=== PATIENT | male | born 1935 | race Caucasian/White ===

== ENCOUNTER 2017-10-13 18:14 | Inpatient (IN) | payer OTHER, BC ==
--- NOTE | 2017-10-13 18:46 | PDOC ---
Rapid Medical Evaluation Time Seen by Provider: 10/13/17 18:43 Medical Evaluation: Allergies Allergy/AdvReac Type Severity Reaction Status Date / Time No Known Allergies Allergy Verified 08/01/17 15:05 10/13/17 18:43 I have performed a brief in-person evaluation of this patient. The patient presents with a chief complaint of: admission for iv antibiotics for infected ankle wounds. Denies fever or chills Pertinent physical findings: NAD even and unlabored breathing slow cautious gait I have ordered the following: iv access, labs The patient will proceed to the ED for further evaluation.
--- NOTE | 2017-10-13 19:39 | PDOC ---
History of Present Illness - General Chief Complaint: Wound Stated Complaint: PCP ADMIT Time Seen by Provider: 10/13/17 18:43 History Source: Patient Exam Limitations: No Limitations - History of Present Illness Initial Comments: 10/13/17 19:41 Best Contact: PCP:[phone] Pmhx: Renal insufficiency, glaucoma, chronic sinusitis, NIDDM, cataracts Pshx: Bilateral knee replacement, left femur fracture/violetta, tonsillitis Allergies: NO KNOWN DRUG ALLERGIES FH:0 Social Hx: Cigarettes/ 0 Alcohol/ 0 Drugs/0 LMP:N/A 82-year-old male presents to the emergency department for cellulitis to the [facility]. Patient states he had his leg culture 1-1/2 weeks ago. He was sent to the wound care center today where he spoke to infectious disease/Dr. Maddox and was sent to the emergency department for admission to Dr. Francis. Patient denies fever, chills, nausea/vomiting, neck stiffness/pain, back pains, chest pain, shortness of breath, abdominal pains, flank pains, urinary symptoms , extremity numbness or tingling sensation. Patient states he's been dealing with chronic bilateral lower extremity for the past month. Past History - Past Medical History Allergies/Adverse Reactions: Allergies Allergy/AdvReac Type Severity Reaction Status Date / Time No Known Allergies Allergy Verified 10/13/17 18:45 Home Medications: Ambulatory Orders ASA - 81 mg PO DAILY 08/01/17 Lasix 20 mg PO DAILY 08/01/17 Glipizide 2.5 mg PO DAILY 08/08/17 Alphagan 0.15% - IO BID MDD right only 10/14/17 Bimatoprost [Lumigan] OU DAILY 10/14/17 Flunisolide DAILY 10/14/17 COPD: No DVT: No Diabetes: Yes (Type 2 Borderline) HTN: Yes Other medical history: GLAUCOMA TO RIGHT EYE. - Surgical History Orthopedic Surgery: Yes (Bilat TKR.) - Immunization History Immunization Up to Date: Yes - Suicide/Smoking/Psychosocial Hx Smoking History: Unknown if ever smoked Have you smoked in the past 12 months: No Information on smoking cessation initiated: No Hx Alcohol Use: No Drug/Substance Use Hx: No Review of Systems - Review of Systems Able to Perform ROS?: Yes Comments:: 10/13/17 20:00 CONSTITUTIONAL: Absent: fever, chills, diaphoresis, generalized weakness, malaise, loss of appetite HEENT: Absent: rhinorrhea, nasal congestion, throat pain, throat swelling, difficulty swallowing, mouth swelling, ear pain, eye pain, visual Changes CARDIOVASCULAR: Absent: chest pain, loss of consciousness, palpitations, irregular heart rate, peripheral edema RESPIRATORY: Absent: cough, shortness of breath, dyspnea with exertion, orthopnea, wheezing, stridor, hemoptysis GASTROINTESTINAL: Absent: abdominal pain, abdominal distension, nausea, vomiting, diarrhea, constipation, melena, hematochezia GENITOURINARY: Absent: dysuria, frequency, urgency, hesitancy, hematuria, flank pain, genital pain MUSCULOSKELETAL: Absent: myalgia, arthralgia, joint swelling SKIN: L lat ankle: +erythema/swelling/greenish drainage Absent: rash, itching, pallor HEMATOLOGIC/IMMUNOLOGIC: Absent: easy bleeding, easy bruising, lymphadenopathy, frequent infections Is the patient limited Cymro proficient: No *Physical Exam - Vital Signs Last Vital Signs Temp Pulse Resp BP Pulse Ox 98.2 F 66 16 156/63 98 10/13/17 18:45 10/13/17 18:45 10/13/17 18:45 10/13/17 18:45 10/13/17 18:45 - Physical Exam Comments: 10/13/17 20:00 GENERAL: Well developed, well nourished. Awake and alert. No acute distress. HEENT: Normocephalic, atraumatic. PERRLA, EOMI. No conjunctival pallor. Sclera are non- icteric. Moist mucous membranes. Oropharynx is clear. NECK: Supple. Full ROM. No JVD. Carotid pulses 2+ and symmetric, without bruits. No thyromegaly. No lymphadenopathy. CARDIOVASCULAR: Regular rate and rhythm. No murmurs, rubs, or gallops. Distal pulses are 2+ and symmetric. PULMONARY: No evidence of respiratory distress. Lungs clear to auscultation bilaterally. No wheezing, rales or rhonchi. ABDOMINAL: Soft. Non-tender. Non-distended. No rebound or guarding. No organomegaly. Normoactive bowel sounds. MUSCULOSKELETAL Normal range of motion at all joints. No bony deformities or tenderness. No CVA tenderness. EXTREMITIES: No cyanosis. No clubbing. No edema. No calf tenderness. SKIN: Left lat ankle: +greenish drainage/ erythema/+swelling w/o lymphangitis Warm and dry. Normal capillary refill. No rashes. No jaundice. NEUROLOGICAL: Alert, awake, appropriate. Cranial nerves 2-12 intact. No deficits to light touch and temperature in face, upper extremities and lower extremities. No motor deficits in the in face, upper extremities and lower extremities. Normoreflexic in the upper and lower extremities. Normal speech. Toes are down- going bilaterally. Gait is normal without ataxia. ED Treatment Course - LABORATORY CBC & Chemistry Diagram: 10/13/17 21:00 10/13/17 21:00 - RADIOLOGY Radiograph Interpretation: 10/13/17 20:01 CXR: 2v *DC/Admit/Observation/Transfer Diagnosis at time of Disposition: Cellulitis of leg Qualifiers: Laterality: left Qualified Code(s): L03.116 - Cellulitis of left lower limb - Discharge Dispostion Condition at time of disposition: Stable Decision to Admit order: Yes - Referrals - Patient Instructions - Post Discharge Activity Progress Note - Progress Note Progress Note: 193rhs: Called Dr. Maddox and Penny 2010hrs: As per DR. Francis/will admit 2058hrs: SPoke to Dr. Maddox/ Jessica if kidney function is normal. Otherwise, call him back. Triple bacteria: Pseudomonas, enterococcus and possibly Escherichia coli culture resulted in ID office as per Dr. Maddox 8hrs: Called Dr. Maddox 0121hrs: Dr. Maddox called back states to give the kristisyn after revealing the BUN/ CR, Maryam NOBLE from [facility] notified
--- NOTE | 2017-10-13 20:13 | PDOC ---
*Physical Exam - Vital Signs Last Vital Signs Temp Pulse Resp BP Pulse Ox 98.2 F 66 16 156/63 98 10/13/17 18:45 10/13/17 18:45 10/13/17 18:45 10/13/17 18:45 10/13/17 18:45 Medical Decision Making - Medical Decision Making 10/13/17 20:13 agree with care from REZA Shaver *DC/Admit/Observation/Transfer Diagnosis at time of Disposition: Cellulitis of leg Qualifiers: Laterality: left Qualified Code(s): L03.116 - Cellulitis of left lower limb - Discharge Dispostion Condition at time of disposition: Stable - Referrals Referrals: Tyson Elizabeth MD [Primary Care Provider] - - Patient Instructions - Post Discharge Activity
[2017-10-13 21:14] LABS: BASO % 0.6 % (0-2.0); EOS % 3.4 % (0-4.5); HEMATOCRIT 33.5 % (35.4-49); HEMOGLOBIN 11.1 GM/dL (11.7-16.9); LYMPH % 25.4 % (8-40); MCH 30.3 pg (25.7-33.7); MCHC 33.1 g/dl (32.0-35.9); MEAN CELL VOLUME 91.4 fl (80-96); MEAN PLT VOLUME 7.3 fl (7.5-11.1); MONO % 7.7 % (3.8-10.2); NEUT % 62.9 % (42.8-82.8); PLATELET COUNT 204 K/MM3 (134-434); RBC 3.67 M/mm3 (4.00-5.60); RDW 14.6 % (11.9-15.9); WHITE BLOOD COUNT 6.6 K/mm3 (4.0-10.0)
[2017-10-13 21:28] LABS: INR 1.09 (0.82-1.09); PROTHROMBIN TIME (PATIENT) 12.3 SEC (9.7-13.0)
[2017-10-13 21:31] LABS: ACTIVATED PTT 25.3 SECONDS (25.2-36.5)
[2017-10-13 21:36] LABS: ALBUMIN 3.8 g/dl (3.4-5.0); ALK PHOS 89 U/L (45-117); ANION GAP 7 (8-16); BILIRUBIN,TOTAL 0.4 mg/dL (0.2-1.0); BLOOD UREA NITROGEN 28 mg/dL (7-18); CALCIUM 9.2 mg/dL (8.5-10.1); CHLORIDE 106 mmol/L (98-107); CO2 29 mmol/L (21-32); GLUCOSE,RANDOM 90 mg/dL (74-106); POTASSIUM 4.2 mmol/L (3.5-5.1); SGOT/AST 24 U/L (15-37); SGPT/ALT 29 U/L (12-78); SODIUM 142 mmol/L (136-145); TOT PROT 6.9 g/dl (6.4-8.2)
[2017-10-14 00:14] VITALS: BMI 34.0
[2017-10-14] MEDS ORDERED: PIPERACILLIN/TAZOB 3.375 GM 3.375 GM in DEXTROSE 5%-WATER - 50 ML IVPB ONE (01:20)
[2017-10-14] MEDS ORDERED: PIPERACILLIN/TAZOBACTAM 3.375 GM VIAL IVPB ONE ×3 (02:23→17:52)
[2017-10-14] MEDS ORDERED: DEXTROSE 5%-WATER - 50 ML IVPB ONE ×3 (02:23→17:52)
[2017-10-14] MEDS: glipiZIDE 5 MG TABLET (FP) PO SCH (10:02)
[2017-10-14] MEDS: ASPIRIN 81 MG CHEWABLE TABLETS PO SCH (10:02)
[2017-10-14] MEDS: FUROSEMIDE 20 MG TABLET (FP) PO SCH (10:03)
[2017-10-14] MEDS: BRIMONIDINE TARTRATE 0.15% OPHTHALMIC 5 ML BOTTLE OD SCH ×2 (10:03→22:12)
--- NOTE | 2017-10-14 13:21 | CON.ID ---
Consult Consult Specialty:: infectious diseases Reason for Consultation:: non healing wound of the left leg with wound infection - History of Present Illness Chief Complaint: non healing wound History of Present Illness: 82-year-old male admitted for cellulitis to the [facility]. patient has ahd this non healing wound for more than couple of months and patient has taken multiple different rounds of abx and the wound has not healed patient was following with the wound care center and wound cx were done which showed multiple organism he denies fever but continues to have discharge and pain at the wound site which hampers his day to day activity also patient has been having discharge from the wound - History Source History Provided By: Patient, Medical Record Limitations to Obtaining History: No Limitations - Alcohol/Substance Use Hx Alcohol Use: No - Smoking History Smoking history: Unknown if ever smoked Have you smoked in the past 12 months: No Home Medications - Allergies Allergies/Adverse Reactions: Allergies Allergy/AdvReac Type Severity Reaction Status Date / Time No Known Allergies Allergy Verified 10/13/17 18:45 - Home Medications Home Medications: Ambulatory Orders ASA - 81 mg PO DAILY 08/01/17 Lasix 20 mg PO DAILY 08/01/17 Glipizide 2.5 mg PO DAILY 08/08/17 Alphagan 0.15% - IO BID MDD right only 10/14/17 Bimatoprost [Lumigan] OU DAILY 10/14/17 Flunisolide DAILY 10/14/17 Review of Systems - Review of Systems Constitutional: reports: No Symptoms Eyes: reports: No Symptoms HENT: reports: No Symptoms Neck: reports: No Symptoms Cardiovascular: reports: No Symptoms Respiratory: reports: No Symptoms Gastrointestinal: reports: No Symptoms Genitourinary: reports: No Symptoms Musculoskeletal: reports: No Symptoms Integumentary: reports: Erythema, Wound Neurological: reports: No Symptoms Hematology/Lymphatic: reports: No Symptoms Psychiatric: reports: No Symptoms Physical Exam Vital Signs: Vital Signs Temperature 98.3 F 10/14/17 10:00 Pulse Rate 59 L 10/14/17 10:00 Respiratory Rate 18 10/14/17 10:00 Blood Pressure 150/55 10/14/17 10:00 O2 Sat by Pulse Oximetry (%) 96 10/14/17 00:55 Constitutional: Yes: No Distress, Calm Cardiovascular: Yes: Regular Rate and Rhythm Respiratory: Yes: Regular, CTA Bilaterally Gastrointestinal: Yes: Normal Bowel Sounds, Soft Musculoskeletal: Yes: Other Extremities: Yes: Erythema (improving), Other Integumentary: Yes: Erythema Wound/Incision: Yes: Dressing Dry and Intact, Dressing Removed Neurological: Yes: Alert, Oriented Psychiatric: Yes: Alert, Oriented Labs: CBC, BMP 10/13/17 21:00 10/13/17 21:00 Imaging - Results Chest X-ray: Report Reviewed, Image Reviewed Assessment/Plan Problem List - Problems (1) Cellulitis of leg Code(s): L03.119 - CELLULITIS OF UNSPECIFIED PART OF LIMB Qualifiers: Laterality: left Qualified Code(s): L03.116 - Cellulitis of left lower limb (2) Diabetes Code(s): E11.9 - TYPE 2 DIABETES MELLITUS WITHOUT COMPLICATIONS 3) wound infection plan all the cx reports noted will start patient on abx relating to cx rest continue current mgmt wound care rest as per the team
[2017-10-14] MEDS: PIPERACILLIN/TAZOB 3.375 GM 3.375 GM in DEXTROSE 5%-WATER - 50 ML IVPB SCH ×2 (15:04→18:03)
--- NOTE | 2017-10-14 16:30 | HP ---
Admitting History and Physical - Primary Care Physician PCP: Belkys Francis - Admission History of Present Illness: 82-year-old male presents to the emergency department for cellulitis to the [facility]. Patient states he had his leg culture 1-1/2 weeks ago. He was sent to the wound care center today where he spoke to infectious disease/Dr. Maddox and was sent to the emergency department for admission to Dr. Francis. Patient denies fever, chills, nausea/vomiting, neck stiffness/pain, back pains, chest pain, shortness of breath, abdominal pains, flank pains. - Past Medical History Endocrine: Yes: Diabetes Mellitus - Smoking History Smoking history: Unknown if ever smoked Have you smoked in the past 12 months: No - Alcohol/Substance Use Hx Alcohol Use: No Home Medications - Allergies Allergies/Adverse Reactions: Allergies Allergy/AdvReac Type Severity Reaction Status Date / Time No Known Allergies Allergy Verified 10/13/17 18:45 - Home Medications Home Medications: Ambulatory Orders ASA - 81 mg PO DAILY 08/01/17 Lasix 20 mg PO DAILY 08/01/17 Glipizide 2.5 mg PO DAILY 08/08/17 Alphagan 0.15% - IO BID MDD right only 10/14/17 Bimatoprost [Lumigan] OU DAILY 10/14/17 Flunisolide DAILY 10/14/17 Physical Examination Vital Signs: Vital Signs Temperature 97.8 F 10/14/17 14:47 Pulse Rate 58 L 10/14/17 14:47 Respiratory Rate 20 10/14/17 14:47 Blood Pressure 130/53 10/14/17 14:47 O2 Sat by Pulse Oximetry (%) 96 10/14/17 00:55 Constitutional: Yes: No Distress HENT: Yes: Atraumatic Neck: Yes: Supple Cardiovascular: Yes: Regular Rate and Rhythm Respiratory: Yes: CTA Bilaterally Gastrointestinal: Yes: Normal Bowel Sounds Extremities: Yes: Other (llex cellulitis) Neurological: Yes: Alert, Oriented Labs: CBC, BMP 10/13/17 21:00 10/13/17 21:00 Problem List - Problems (1) Cellulitis of leg Assessment/Plan: iv abx id on board Code(s): L03.119 - CELLULITIS OF UNSPECIFIED PART OF LIMB Qualifiers: Laterality: left Qualified Code(s): L03.116 - Cellulitis of left lower limb (2) Diabetes Assessment/Plan: on po med bgms Code(s): E11.9 - TYPE 2 DIABETES MELLITUS WITHOUT COMPLICATIONS Assessment/Plan Laboratory Tests 10/13/17 10/13/17 10/13/17 21:00 21:00 21:00 WBC 6.6 RBC 3.67 L Hgb 11.1 L Hct 33.5 L MCV 91.4 MCH 30.3 MCHC 33.1 RDW 14.6 Plt Count 204 MPV 7.3 L Absolute Neuts (auto) 4.2 Neutrophils % 62.9 Lymphocytes % 25.4 Monocytes % 7.7 Eosinophils % 3.4 Basophils % 0.6 Nucleated RBC % 0 PT with INR 12.30 INR 1.09 PTT (Actin FS) 25.3 L Sodium 142 Potassium 4.2 Chloride 106 Carbon Dioxide 29 Anion Gap 7 L BUN 28 H Creatinine 1.0 Creat Clearance w eGFR > 60 POC Glucometer Random Glucose 90 Calcium 9.2 Total Bilirubin 0.4 AST 24 ALT 29 Alkaline Phosphatase 89 Total Protein 6.9 Albumin 3.8 10/14/17 00:22 WBC RBC Hgb Hct MCV MCH MCHC RDW Plt Count MPV Absolute Neuts (auto) Neutrophils % Lymphocytes % Monocytes % Eosinophils % Basophils % Nucleated RBC % PT with INR INR PTT (Actin FS) Sodium Potassium Chloride Carbon Dioxide Anion Gap BUN Creatinine Creat Clearance w eGFR POC Glucometer 83 Random Glucose Calcium Total Bilirubin AST ALT Alkaline Phosphatase Total Protein Albumin Active Medications Generic Name Dose Route Start Last Admin Trade Name Freq PRN Reason Stop Dose Admin Aspirin 81 mg 10/14/17 10:00 10/14/17 10:02 Asa - PO 81 mg DAILY SLY Administration Brimonidine Tartrate 1 drop 10/14/17 10:00 10/14/17 10:03 Alphagan 0.15% - OD 1 drop BID SLY Administration Furosemide 20 mg 10/14/17 10:00 10/14/17 10:03 Lasix - PO 20 mg DAILY SLY Administration Glipizide 2.5 mg 10/14/17 09:30 10/14/17 10:02 Glucotrol - PO 2.5 mg DAILY@0700 SLY Administration Piperacillin Sod/Tazobactam 50 mls @ 100 mls/hr 10/14/17 14:45 10/14/17 15:04 Sod 3.375 gm/ Dextrose IVPB 100 mls/hr Q8H-IV SLY Administration Protocol Latanoprost 1 drop 10/14/17 22:00 Xalatan 0.005% Eye Drops - OU HS SLY
[2017-10-14] MEDS: LATANOPROST 0.005% OPHTH SOLN 2.5ML BOTTLE OU SCH (22:13)
[2017-10-15] MEDS ORDERED: DEXTROSE 5%-WATER - 50 ML IVPB ONE ×3 (00:54→17:02)
[2017-10-15] MEDS ORDERED: PIPERACILLIN/TAZOBACTAM 3.375 GM VIAL IVPB ONE ×3 (00:54→17:02)
[2017-10-15] MEDS: PIPERACILLIN/TAZOB 3.375 GM 3.375 GM in DEXTROSE 5%-WATER - 50 ML IVPB SCH ×3 (01:29→17:19)
[2017-10-15] MEDS: glipiZIDE 5 MG TABLET (FP) PO SCH (06:26)
[2017-10-15] MEDS ORDERED: PT OWN MED DRAWER 7, Y5N ONE ×2 (06:56→22:24)
[2017-10-15 07:40] LABS: ALBUMIN 3.2 g/dl (3.4-5.0); ANION GAP 8 (8-16); BILIRUBIN,TOTAL 0.5 mg/dL (0.2-1.0); BLOOD UREA NITROGEN 24 mg/dL (7-18); CALCIUM 8.8 mg/dL (8.5-10.1); CHLORIDE 105 mmol/L (98-107); CO2 29 mmol/L (21-32); GLUCOSE,RANDOM 89 mg/dL (74-106); SGPT/ALT 27 U/L (12-78); SODIUM 142 mmol/L (136-145); TOT PROT 6.4 g/dl (6.4-8.2)
[2017-10-15 07:41] LABS: ALK PHOS 79 U/L (45-117)
[2017-10-15 07:46] LABS: POTASSIUM 4.6 mmol/L (3.5-5.1); SGOT/AST 34 U/L (15-37)
[2017-10-15 08:25] LABS: BASO % 0.2 % (0-2.0); EOS % 6.2 % (0-4.5); HEMATOCRIT 34.7 % (35.4-49); HEMOGLOBIN 11.7 GM/dL (11.7-16.9); LYMPH % 23.6 % (8-40); MCH 30.5 pg (25.7-33.7); MCHC 33.6 g/dl (32.0-35.9); MEAN CELL VOLUME 90.9 fl (80-96); MONO % 8.6 % (3.8-10.2); NEUT % 61.4 % (42.8-82.8); PLATELET COUNT 175 K/MM3 (134-434); RBC 3.82 M/mm3 (4.00-5.60); RDW 14.3 % (11.9-15.9); WHITE BLOOD COUNT 5.4 K/mm3 (4.0-10.0)
[2017-10-15] MEDS: ASPIRIN 81 MG CHEWABLE TABLETS PO SCH (09:34)
[2017-10-15] MEDS: BRIMONIDINE TARTRATE 0.15% OPHTHALMIC 5 ML BOTTLE OD SCH ×2 (09:34→22:02)
[2017-10-15] MEDS: FUROSEMIDE 20 MG TABLET (FP) PO SCH (09:34)
--- NOTE | 2017-10-15 11:55 | PN ---
Progress Note, Physician History of Present Illness: patient stable no new issues dressing done cx known - Current Medication List Current Medications: Active Medications Aspirin (Asa -) 81 mg PO DAILY [facility] Last Admin: 10/15/17 09:34 Dose: 81 mg Brimonidine Tartrate (Alphagan 0.15% -) 1 drop OD BID [facility] Last Admin: 10/15/17 09:34 Dose: 1 drop Furosemide (Lasix -) 20 mg PO DAILY [facility] Last Admin: 10/15/17 09:34 Dose: 20 mg Glipizide (Glucotrol -) 2.5 mg PO DAILY@0700 [facility] Last Admin: 10/15/17 06:26 Dose: 2.5 mg Piperacillin Sod/Tazobactam (Sod 3.375 gm/ Dextrose) 50 mls @ 100 mls/hr IVPB Q8H-IV SLY; Protocol Last Admin: 10/15/17 09:33 Dose: 100 mls/hr Latanoprost (Xalatan 0.005% Eye Drops -) 1 drop OU HS [facility] Last Admin: 10/14/17 22:13 Dose: 1 drop - Objective Vital Signs: Vital Signs Temperature 98.1 F 10/15/17 06:00 Pulse Rate 57 L 10/15/17 06:00 Respiratory Rate 20 10/15/17 06:00 Blood Pressure 143/78 10/15/17 06:00 O2 Sat by Pulse Oximetry (%) 96 10/14/17 20:42 Constitutional: Yes: No Distress, Calm Cardiovascular: Yes: Regular Rate and Rhythm Respiratory: Yes: Regular, CTA Bilaterally Gastrointestinal: Yes: Normal Bowel Sounds, Soft Musculoskeletal: Yes: WNL Extremities: Yes: Other Wound/Incision: Yes: Dressing Dry and Intact Neurological: Yes: Alert, Oriented Labs: CBC, BMP 10/15/17 06:00 10/15/17 06:00 INR, PTT INR 1.09 (0.82-1.09) 10/13/17 21:00 Assessment/Plan Problem List - Problems (1) Cellulitis of leg Code(s): L03.119 - CELLULITIS OF UNSPECIFIED PART OF LIMB Qualifiers: Laterality: left Qualified Code(s): L03.116 - Cellulitis of left lower limb (2) Diabetes Code(s): E11.9 - TYPE 2 DIABETES MELLITUS WITHOUT COMPLICATIONS 3) wound infection plan continue abx wound care rest as per the team will d/w wound care
--- NOTE | 2017-10-15 16:46 | PN ---
Progress Note, Physician - Current Medication List Current Medications: Active Medications Aspirin (Asa -) 81 mg PO DAILY [facility] Last Admin: 10/15/17 09:34 Dose: 81 mg Brimonidine Tartrate (Alphagan 0.15% -) 1 drop OD BID [facility] Last Admin: 10/15/17 09:34 Dose: 1 drop Furosemide (Lasix -) 20 mg PO DAILY [facility] Last Admin: 10/15/17 09:34 Dose: 20 mg Glipizide (Glucotrol -) 2.5 mg PO DAILY@0700 [facility] Last Admin: 10/15/17 06:26 Dose: 2.5 mg Piperacillin Sod/Tazobactam (Sod 3.375 gm/ Dextrose) 50 mls @ 100 mls/hr IVPB Q8H-IV SLY; Protocol Last Admin: 10/15/17 09:33 Dose: 100 mls/hr Latanoprost (Xalatan 0.005% Eye Drops -) 1 drop OU HS [facility] Last Admin: 10/14/17 22:13 Dose: 1 drop - Objective Vital Signs: Vital Signs Temperature 97.5 F L 10/15/17 14:04 Pulse Rate 65 10/15/17 14:04 Respiratory Rate 20 10/15/17 14:04 Blood Pressure 131/55 10/15/17 14:04 O2 Sat by Pulse Oximetry (%) 97 10/15/17 09:00 Constitutional: Yes: No Distress HENT: Yes: Atraumatic Neck: Yes: Supple Cardiovascular: Yes: Regular Rate and Rhythm Respiratory: Yes: CTA Bilaterally Gastrointestinal: Yes: Normal Bowel Sounds Extremities: Yes: Other (llex cellulitis) Neurological: Yes: Alert, Oriented Labs: CBC, BMP 10/15/17 06:00 10/15/17 06:00 INR, PTT INR 1.09 (0.82-1.09) 10/13/17 21:00 Problem List - Problems (1) Cellulitis of leg Assessment/Plan: iv abx id on board Code(s): L03.119 - CELLULITIS OF UNSPECIFIED PART OF LIMB Qualifiers: Laterality: left Qualified Code(s): L03.116 - Cellulitis of left lower limb (2) Diabetes Assessment/Plan: on po med bgms Code(s): E11.9 - TYPE 2 DIABETES MELLITUS WITHOUT COMPLICATIONS
[2017-10-15] MEDS: LATANOPROST 0.005% OPHTH SOLN 2.5ML BOTTLE OU SCH (22:02)
[2017-10-16] MEDS ORDERED: PIPERACILLIN/TAZOBACTAM 3.375 GM VIAL IVPB ONE ×3 (01:19→17:30)
[2017-10-16] MEDS ORDERED: DEXTROSE 5%-WATER - 50 ML IVPB ONE ×3 (01:19→17:31)
[2017-10-16] MEDS: PIPERACILLIN/TAZOB 3.375 GM 3.375 GM in DEXTROSE 5%-WATER - 50 ML IVPB SCH ×4 (01:25→17:42)
[2017-10-16] MEDS: glipiZIDE 5 MG TABLET (FP) PO SCH (06:18)
[2017-10-16] MEDS: ASPIRIN 81 MG CHEWABLE TABLETS PO SCH (09:15)
[2017-10-16] MEDS: BRIMONIDINE TARTRATE 0.15% OPHTHALMIC 5 ML BOTTLE OD SCH ×2 (09:15→22:06)
[2017-10-16] MEDS: FUROSEMIDE 20 MG TABLET (FP) PO SCH (09:15)
--- NOTE | 2017-10-16 14:07 | PN ---
Progress Note (short form) - Note Progress Note: [facility] Well known from [facility]. Here for cellulitis of LLE. Cont alginate and ion for compression. IV antibiotics. Leg elevation. Kenrick gilmore DO
--- NOTE | 2017-10-16 14:50 | PN ---
Progress Note, Physician History of Present Illness: doing well wound healing well no complaints - Current Medication List Current Medications: Active Medications Aspirin (Asa -) 81 mg PO DAILY [facility] Last Admin: 10/16/17 09:15 Dose: 81 mg Brimonidine Tartrate (Alphagan 0.15% -) 1 drop OD BID [facility] Last Admin: 10/16/17 09:15 Dose: 1 drop Furosemide (Lasix -) 20 mg PO DAILY [facility] Last Admin: 10/16/17 09:15 Dose: 20 mg Glipizide (Glucotrol -) 2.5 mg PO DAILY@0700 [facility] Last Admin: 10/16/17 06:18 Dose: 2.5 mg Piperacillin Sod/Tazobactam (Sod 3.375 gm/ Dextrose) 50 mls @ 100 mls/hr IVPB Q8H-IV SLY; Protocol Last Admin: 10/16/17 11:10 Dose: 100 mls/hr Latanoprost (Xalatan 0.005% Eye Drops -) 1 drop OU HS [facility] Last Admin: 10/15/17 22:02 Dose: 1 drop - Objective Vital Signs: Vital Signs Temperature 97.8 F 10/16/17 13:00 Pulse Rate 59 L 10/16/17 13:00 Respiratory Rate 20 10/16/17 13:00 Blood Pressure 116/55 10/16/17 13:00 O2 Sat by Pulse Oximetry (%) 96 10/16/17 09:00 Constitutional: Yes: No Distress, Calm Cardiovascular: Yes: Regular Rate and Rhythm Respiratory: Yes: Regular, CTA Bilaterally Gastrointestinal: Yes: Normal Bowel Sounds, Soft Musculoskeletal: Yes: WNL Extremities: Yes: Other Wound/Incision: Yes: Dressing Dry and Intact Neurological: Yes: Alert, Oriented Psychiatric: Yes: Alert, Oriented Labs: CBC, BMP 10/15/17 06:00 10/15/17 06:00 INR, PTT INR 1.09 (0.82-1.09) 10/13/17 21:00 Assessment/Plan Problem List - Problems (1) Cellulitis of leg Code(s): L03.119 - CELLULITIS OF UNSPECIFIED PART OF LIMB Qualifiers: Laterality: left Qualified Code(s): L03.116 - Cellulitis of left lower limb (2) Diabetes Code(s): E11.9 - TYPE 2 DIABETES MELLITUS WITHOUT COMPLICATIONS 3) wound infection plan continue current abx rest as per the team wound care improving
--- NOTE | 2017-10-16 17:56 | PN ---
Progress Note, Physician - Current Medication List Current Medications: Active Medications Aspirin (Asa -) 81 mg PO DAILY [facility] Last Admin: 10/16/17 09:15 Dose: 81 mg Brimonidine Tartrate (Alphagan 0.15% -) 1 drop OD BID [facility] Last Admin: 10/16/17 09:15 Dose: 1 drop Furosemide (Lasix -) 20 mg PO DAILY [facility] Last Admin: 10/16/17 09:15 Dose: 20 mg Glipizide (Glucotrol -) 2.5 mg PO DAILY@0700 [facility] Last Admin: 10/16/17 06:18 Dose: 2.5 mg Piperacillin Sod/Tazobactam (Sod 3.375 gm/ Dextrose) 50 mls @ 100 mls/hr IVPB Q8H-IV SLY; Protocol Last Admin: 10/16/17 17:42 Dose: 100 mls/hr Latanoprost (Xalatan 0.005% Eye Drops -) 1 drop OU HS [facility] Last Admin: 10/15/17 22:02 Dose: 1 drop - Objective Vital Signs: Vital Signs Temperature 97.8 F 10/16/17 13:00 Pulse Rate 59 L 10/16/17 13:00 Respiratory Rate 20 10/16/17 13:00 Blood Pressure 116/55 10/16/17 13:00 O2 Sat by Pulse Oximetry (%) 96 10/16/17 09:00 Constitutional: Yes: No Distress HENT: Yes: Atraumatic Neck: Yes: Supple Cardiovascular: Yes: Regular Rate and Rhythm Respiratory: Yes: CTA Bilaterally Gastrointestinal: Yes: Normal Bowel Sounds Extremities: Yes: Other (llex cellulitis) Neurological: Yes: Alert, Oriented Labs: CBC, BMP 10/15/17 06:00 10/15/17 06:00 INR, PTT INR 1.09 (0.82-1.09) 10/13/17 21:00 Problem List - Problems (1) Cellulitis of leg Assessment/Plan: iv abx wound care dressing change Code(s): L03.119 - CELLULITIS OF UNSPECIFIED PART OF LIMB Qualifiers: Laterality: left Qualified Code(s): L03.116 - Cellulitis of left lower limb (2) Diabetes Assessment/Plan: on po med bgms Code(s): E11.9 - TYPE 2 DIABETES MELLITUS WITHOUT COMPLICATIONS
[2017-10-16] MEDS: LATANOPROST 0.005% OPHTH SOLN 2.5ML BOTTLE OU SCH (22:04)
[2017-10-17] MEDS ORDERED: PIPERACILLIN/TAZOBACTAM 3.375 GM VIAL IVPB ONE ×3 (00:25→17:38)
[2017-10-17] MEDS ORDERED: DEXTROSE 5%-WATER - 50 ML IVPB ONE ×3 (00:25→17:38)
[2017-10-17] MEDS: PIPERACILLIN/TAZOB 3.375 GM 3.375 GM in DEXTROSE 5%-WATER - 50 ML IVPB SCH ×3 (00:59→17:56)
[2017-10-17] MEDS: glipiZIDE 5 MG TABLET (FP) PO SCH (06:04)
[2017-10-17] MEDS ORDERED: PT OWN MED DRAWER 7, Y5N ONE ×4 (06:14→21:09)
[2017-10-17] MEDS: FUROSEMIDE 20 MG TABLET (FP) PO SCH (09:24)
[2017-10-17] MEDS: ASPIRIN 81 MG CHEWABLE TABLETS PO SCH (09:24)
[2017-10-17] MEDS: BRIMONIDINE TARTRATE 0.15% OPHTHALMIC 5 ML BOTTLE OD SCH ×2 (09:25→21:22)
--- NOTE | 2017-10-17 11:21 | PN ---
Progress Note, Physician History of Present Illness: stable no new issues - Current Medication List Current Medications: Active Medications Aspirin (Asa -) 81 mg PO DAILY [facility] Last Admin: 10/17/17 09:24 Dose: 81 mg Brimonidine Tartrate (Alphagan 0.15% -) 1 drop OD BID [facility] Last Admin: 10/17/17 09:25 Dose: 1 drop Furosemide (Lasix -) 20 mg PO DAILY [facility] Last Admin: 10/17/17 09:24 Dose: 20 mg Glipizide (Glucotrol -) 2.5 mg PO DAILY@0700 [facility] Last Admin: 10/17/17 06:04 Dose: 2.5 mg Piperacillin Sod/Tazobactam (Sod 3.375 gm/ Dextrose) 50 mls @ 100 mls/hr IVPB Q8H-IV [facility]; Protocol Last Admin: 10/17/17 09:24 Dose: 100 mls/hr Latanoprost (Xalatan 0.005% Eye Drops -) 1 drop OU HS [facility] Last Admin: 10/16/17 22:04 Dose: 1 drop - Objective Vital Signs: Vital Signs Temperature 97.5 F L 10/17/17 05:27 Pulse Rate 56 L 10/17/17 05:27 Respiratory Rate 20 10/17/17 09:00 Blood Pressure 133/52 10/17/17 05:27 O2 Sat by Pulse Oximetry (%) 96 10/17/17 09:00 Constitutional: Yes: No Distress, Calm Cardiovascular: Yes: Regular Rate and Rhythm Respiratory: Yes: Regular, CTA Bilaterally Gastrointestinal: Yes: Normal Bowel Sounds, Soft Musculoskeletal: Yes: WNL Extremities: Yes: Other Wound/Incision: Yes: Dressing Dry and Intact Neurological: Yes: Alert, Oriented Psychiatric: Yes: Alert, Oriented Labs: CBC, BMP 10/15/17 06:00 10/15/17 06:00 INR, PTT INR 1.09 (0.82-1.09) 10/13/17 21:00 Assessment/Plan Problem List - Problems (1) Cellulitis of leg Code(s): L03.119 - CELLULITIS OF UNSPECIFIED PART OF LIMB Qualifiers: Laterality: left Qualified Code(s): L03.116 - Cellulitis of left lower limb (2) Diabetes Code(s): E11.9 - TYPE 2 DIABETES MELLITUS WITHOUT COMPLICATIONS 3) wound infection plan continue current abx rest as per the team wound care improving
--- NOTE | 2017-10-17 19:37 | PN ---
Progress Note, Physician - Current Medication List Current Medications: Active Medications Aspirin (Asa -) 81 mg PO DAILY [facility] Last Admin: 10/17/17 09:24 Dose: 81 mg Brimonidine Tartrate (Alphagan 0.15% -) 1 drop OD BID [facility] Last Admin: 10/17/17 09:25 Dose: 1 drop Furosemide (Lasix -) 20 mg PO DAILY [facility] Last Admin: 10/17/17 09:24 Dose: 20 mg Glipizide (Glucotrol -) 2.5 mg PO DAILY@0700 [facility] Last Admin: 10/17/17 06:04 Dose: 2.5 mg Piperacillin Sod/Tazobactam (Sod 3.375 gm/ Dextrose) 50 mls @ 100 mls/hr IVPB Q8H-IV SLY; Protocol Last Admin: 10/17/17 17:56 Dose: 100 mls/hr Latanoprost (Xalatan 0.005% Eye Drops -) 1 drop OU HS [facility] Last Admin: 10/16/17 22:04 Dose: 1 drop - Objective Vital Signs: Vital Signs Temperature 97.8 F 10/17/17 18:35 Pulse Rate 63 10/17/17 18:35 Respiratory Rate 20 10/17/17 18:35 Blood Pressure 129/54 10/17/17 18:35 O2 Sat by Pulse Oximetry (%) 96 10/17/17 09:00 Constitutional: Yes: No Distress HENT: Yes: Atraumatic Cardiovascular: Yes: Regular Rate and Rhythm Respiratory: Yes: CTA Bilaterally Gastrointestinal: Yes: Normal Bowel Sounds Extremities: Yes: Other (llex cellulitis) Neurological: Yes: Alert, Oriented Labs: CBC, BMP 10/15/17 06:00 10/15/17 06:00 INR, PTT INR 1.09 (0.82-1.09) 10/13/17 21:00 Problem List - Problems (1) Cellulitis of leg Assessment/Plan: iv abx wound care dressing change Code(s): L03.119 - CELLULITIS OF UNSPECIFIED PART OF LIMB Qualifiers: Laterality: left Qualified Code(s): L03.116 - Cellulitis of left lower limb (2) Diabetes Assessment/Plan: on po med bgms Code(s): E11.9 - TYPE 2 DIABETES MELLITUS WITHOUT COMPLICATIONS
[2017-10-17] MEDS: LATANOPROST 0.005% OPHTH SOLN 2.5ML BOTTLE OU SCH (21:22)
[2017-10-18] MEDS ORDERED: PIPERACILLIN/TAZOBACTAM 3.375 GM VIAL IVPB ONE ×3 (02:40→17:10)
[2017-10-18] MEDS ORDERED: DEXTROSE 5%-WATER - 50 ML IVPB ONE ×3 (02:40→17:11)
[2017-10-18] MEDS: PIPERACILLIN/TAZOB 3.375 GM 3.375 GM in DEXTROSE 5%-WATER - 50 ML IVPB SCH ×3 (02:48→17:54)
[2017-10-18] MEDS: glipiZIDE 5 MG TABLET (FP) PO SCH (06:31)
[2017-10-18] MEDS ORDERED: PT OWN MED DRAWER 7, Y5N ONE ×2 (09:20→20:13)
[2017-10-18] MEDS: ASPIRIN 81 MG CHEWABLE TABLETS PO SCH (09:29)
[2017-10-18] MEDS: FUROSEMIDE 20 MG TABLET (FP) PO SCH (09:29)
[2017-10-18] MEDS: BRIMONIDINE TARTRATE 0.15% OPHTHALMIC 5 ML BOTTLE OD SCH ×2 (09:30→21:05)
--- NOTE | 2017-10-18 15:22 | PN ---
Progress Note, Physician History of Present Illness: doing well no complaints according to staff wound looked good when changed - Current Medication List Current Medications: Active Medications Aspirin (Asa -) 81 mg PO DAILY [facility] Last Admin: 10/18/17 09:29 Dose: 81 mg Brimonidine Tartrate (Alphagan 0.15% -) 1 drop OD BID [facility] Last Admin: 10/18/17 09:30 Dose: 1 drop Furosemide (Lasix -) 20 mg PO DAILY [facility] Last Admin: 10/18/17 09:29 Dose: 20 mg Glipizide (Glucotrol -) 2.5 mg PO DAILY@0700 [facility] Last Admin: 10/18/17 06:31 Dose: 2.5 mg Piperacillin Sod/Tazobactam (Sod 3.375 gm/ Dextrose) 50 mls @ 100 mls/hr IVPB Q8H-IV SLY; Protocol Last Admin: 10/18/17 09:29 Dose: 100 mls/hr Latanoprost (Xalatan 0.005% Eye Drops -) 1 drop OU HS [facility] Last Admin: 10/17/17 21:22 Dose: 1 drop - Objective Vital Signs: Vital Signs Temperature 98.4 F 10/18/17 14:13 Pulse Rate 64 10/18/17 14:13 Respiratory Rate 20 10/18/17 14:13 Blood Pressure 128/47 10/18/17 14:13 O2 Sat by Pulse Oximetry (%) 95 10/18/17 09:00 Constitutional: Yes: No Distress, Calm Cardiovascular: Yes: Regular Rate and Rhythm Respiratory: Yes: Regular, CTA Bilaterally Gastrointestinal: Yes: Normal Bowel Sounds, Soft Musculoskeletal: Yes: WNL Extremities: Yes: Other Wound/Incision: Yes: Dressing Dry and Intact Neurological: Yes: Alert, Oriented Labs: CBC, BMP 10/15/17 06:00 10/15/17 06:00 INR, PTT INR 1.09 (0.82-1.09) 10/13/17 21:00 Assessment/Plan Problem List - Problems (1) Cellulitis of leg Code(s): L03.119 - CELLULITIS OF UNSPECIFIED PART OF LIMB Qualifiers: Laterality: left Qualified Code(s): L03.116 - Cellulitis of left lower limb (2) Diabetes Code(s): E11.9 - TYPE 2 DIABETES MELLITUS WITHOUT COMPLICATIONS 3) wound infection plan continue current abx rest as per the team wound care improving
--- NOTE | 2017-10-18 15:30 | PN ---
Progress Note, Physician History of Present Illness: doing well - Current Medication List Current Medications: Active Medications Aspirin (Asa -) 81 mg PO DAILY [facility] Last Admin: 10/18/17 09:29 Dose: 81 mg Brimonidine Tartrate (Alphagan 0.15% -) 1 drop OD BID [facility] Last Admin: 10/18/17 09:30 Dose: 1 drop Furosemide (Lasix -) 20 mg PO DAILY [facility] Last Admin: 10/18/17 09:29 Dose: 20 mg Glipizide (Glucotrol -) 2.5 mg PO DAILY@0700 [facility] Last Admin: 10/18/17 06:31 Dose: 2.5 mg Piperacillin Sod/Tazobactam (Sod 3.375 gm/ Dextrose) 50 mls @ 100 mls/hr IVPB Q8H-IV SLY; Protocol Last Admin: 10/18/17 09:29 Dose: 100 mls/hr Latanoprost (Xalatan 0.005% Eye Drops -) 1 drop OU HS [facility] Last Admin: 10/17/17 21:22 Dose: 1 drop - Objective Vital Signs: Vital Signs Temperature 98.4 F 10/18/17 14:13 Pulse Rate 64 10/18/17 14:13 Respiratory Rate 20 10/18/17 14:13 Blood Pressure 128/47 10/18/17 14:13 O2 Sat by Pulse Oximetry (%) 95 10/18/17 09:00 Constitutional: Yes: No Distress HENT: Yes: Atraumatic Neck: Yes: Supple Cardiovascular: Yes: Regular Rate and Rhythm Respiratory: Yes: CTA Bilaterally Gastrointestinal: Yes: Normal Bowel Sounds Extremities: Yes: Other (llex cellulitis improving) Labs: CBC, BMP 10/15/17 06:00 10/15/17 06:00 INR, PTT INR 1.09 (0.82-1.09) 10/13/17 21:00 Problem List - Problems (1) Cellulitis of leg Assessment/Plan: iv abx wound care dressing change Code(s): L03.119 - CELLULITIS OF UNSPECIFIED PART OF LIMB Qualifiers: Laterality: left Qualified Code(s): L03.116 - Cellulitis of left lower limb (2) Diabetes Assessment/Plan: on po med bgms Code(s): E11.9 - TYPE 2 DIABETES MELLITUS WITHOUT COMPLICATIONS
[2017-10-18] MEDS: LATANOPROST 0.005% OPHTH SOLN 2.5ML BOTTLE OU SCH (21:05)
[2017-10-19] MEDS ORDERED: DEXTROSE 5%-WATER - 50 ML IVPB ONE ×3 (02:34→17:03)
[2017-10-19] MEDS ORDERED: PIPERACILLIN/TAZOBACTAM 3.375 GM VIAL IVPB ONE ×3 (02:34→17:03)
[2017-10-19] MEDS: PIPERACILLIN/TAZOB 3.375 GM 3.375 GM in DEXTROSE 5%-WATER - 50 ML IVPB SCH ×3 (02:39→17:27)
[2017-10-19] MEDS: glipiZIDE 5 MG TABLET (FP) PO SCH (06:42)
[2017-10-19 07:27] LABS: BASO % 0.5 % (0-2.0); EOS % 4.6 % (0-4.5); HEMATOCRIT 34.5 % (35.4-49); HEMOGLOBIN 11.7 GM/dL (11.7-16.9); LYMPH % 14.9 % (8-40); MEAN CELL VOLUME 91.2 fl (80-96); MEAN PLT VOLUME 7.4 fl (7.5-11.1); MONO % 7.4 % (3.8-10.2); NEUT % 72.6 % (42.8-82.8); PLATELET COUNT 162 K/MM3 (134-434); RBC 3.78 M/mm3 (4.00-5.60); RDW 14.7 % (11.9-15.9); WHITE BLOOD COUNT 10.1 K/mm3 (4.0-10.0)
[2017-10-19 08:01] LABS: CHLORIDE 104 mmol/L (98-107); POTASSIUM 3.9 mmol/L (3.5-5.1); SODIUM 140 mmol/L (136-145)
[2017-10-19 08:18] LABS: ALBUMIN 3.3 g/dl (3.4-5.0); ALK PHOS 75 U/L (45-117); ANION GAP 7 (8-16); BILIRUBIN,TOTAL 0.5 mg/dL (0.2-1.0); BLOOD UREA NITROGEN 35 mg/dL (7-18); CALCIUM 8.8 mg/dL (8.5-10.1); CO2 29 mmol/L (21-32); CREATININE 1.2 mg/dL (0.7-1.3); GLUCOSE,RANDOM 79 mg/dL (74-106); SGOT/AST 25 U/L (15-37); SGPT/ALT 29 U/L (12-78); TOT PROT 6.4 g/dl (6.4-8.2)
--- NOTE | 2017-10-19 09:46 | PN ---
Progress Note, Physician History of Present Illness: stable doing well no complaints - Current Medication List Current Medications: Active Medications Aspirin (Asa -) 81 mg PO DAILY [facility] Last Admin: 10/18/17 09:29 Dose: 81 mg Brimonidine Tartrate (Alphagan 0.15% -) 1 drop OD BID [facility] Last Admin: 10/18/17 21:05 Dose: 1 drop Furosemide (Lasix -) 20 mg PO DAILY [facility] Last Admin: 10/18/17 09:29 Dose: 20 mg Glipizide (Glucotrol -) 2.5 mg PO DAILY@0700 [facility] Last Admin: 10/19/17 06:42 Dose: 2.5 mg Piperacillin Sod/Tazobactam (Sod 3.375 gm/ Dextrose) 50 mls @ 100 mls/hr IVPB Q8H-IV SLY; Protocol Last Admin: 10/19/17 02:39 Dose: 100 mls/hr Latanoprost (Xalatan 0.005% Eye Drops -) 1 drop OU HS [facility] Last Admin: 10/18/17 21:05 Dose: 1 drop - Objective Vital Signs: Vital Signs Temperature 98.0 F 10/19/17 05:46 Pulse Rate 60 10/19/17 05:46 Respiratory Rate 18 10/19/17 05:46 Blood Pressure 132/54 10/19/17 05:46 O2 Sat by Pulse Oximetry (%) 95 10/18/17 21:00 Constitutional: Yes: No Distress, Calm Cardiovascular: Yes: Regular Rate and Rhythm Respiratory: Yes: Regular, CTA Bilaterally Gastrointestinal: Yes: Normal Bowel Sounds, Soft Musculoskeletal: Yes: WNL Extremities: Yes: Other Wound/Incision: Yes: Dressing Dry and Intact Neurological: Yes: Alert, Oriented Psychiatric: Yes: Alert, Oriented Labs: CBC, BMP 10/19/17 06:00 10/19/17 06:00 INR, PTT INR 1.09 (0.82-1.09) 10/13/17 21:00 Assessment/Plan Problem List - Problems (1) Cellulitis of leg Code(s): L03.119 - CELLULITIS OF UNSPECIFIED PART OF LIMB Qualifiers: Laterality: left Qualified Code(s): L03.116 - Cellulitis of left lower limb (2) Diabetes Code(s): E11.9 - TYPE 2 DIABETES MELLITUS WITHOUT COMPLICATIONS 3) wound infection plan continue current abx rest as per the team wound care improving will check the wound if dressing material present
[2017-10-19] MEDS: FUROSEMIDE 20 MG TABLET (FP) PO SCH (10:32)
[2017-10-19] MEDS: ASPIRIN 81 MG CHEWABLE TABLETS PO SCH (10:32)
[2017-10-19] MEDS: BRIMONIDINE TARTRATE 0.15% OPHTHALMIC 5 ML BOTTLE OD SCH ×2 (10:33→21:09)
--- NOTE | 2017-10-19 19:37 | PN ---
Progress Note, Physician History of Present Illness: doing well - Current Medication List Current Medications: Active Medications Aspirin (Asa -) 81 mg PO DAILY [facility] Last Admin: 10/19/17 10:32 Dose: 81 mg Brimonidine Tartrate (Alphagan 0.15% -) 1 drop OD BID [facility] Last Admin: 10/19/17 10:33 Dose: 1 drop Furosemide (Lasix -) 20 mg PO DAILY [facility] Last Admin: 10/19/17 10:32 Dose: 20 mg Glipizide (Glucotrol -) 2.5 mg PO DAILY@0700 [facility] Last Admin: 10/19/17 06:42 Dose: 2.5 mg Piperacillin Sod/Tazobactam (Sod 3.375 gm/ Dextrose) 50 mls @ 100 mls/hr IVPB Q8H-IV SLY; Protocol Last Admin: 10/19/17 17:27 Dose: 100 mls/hr Latanoprost (Xalatan 0.005% Eye Drops -) 1 drop OU HS [facility] Last Admin: 10/18/17 21:05 Dose: 1 drop - Objective Vital Signs: Vital Signs Temperature 97.7 F 10/19/17 17:47 Pulse Rate 65 10/19/17 17:47 Respiratory Rate 18 10/19/17 17:47 Blood Pressure 150/59 10/19/17 17:47 O2 Sat by Pulse Oximetry (%) 95 10/19/17 09:00 Constitutional: Yes: No Distress HENT: Yes: Atraumatic Neck: Yes: Supple Cardiovascular: Yes: Regular Rate and Rhythm Respiratory: Yes: CTA Bilaterally Gastrointestinal: Yes: Normal Bowel Sounds Extremities: Yes: Other (llex cellulitis) Neurological: Yes: Alert, Oriented Labs: CBC, BMP 10/19/17 06:00 10/19/17 06:00 INR, PTT INR 1.09 (0.82-1.09) 10/13/17 21:00 Problem List - Problems (1) Cellulitis of leg Assessment/Plan: iv abx wound care dressing change Code(s): L03.119 - CELLULITIS OF UNSPECIFIED PART OF LIMB Qualifiers: Laterality: left Qualified Code(s): L03.116 - Cellulitis of left lower limb (2) Diabetes Assessment/Plan: on po med bgms Code(s): E11.9 - TYPE 2 DIABETES MELLITUS WITHOUT COMPLICATIONS
[2017-10-19] MEDS: LATANOPROST 0.005% OPHTH SOLN 2.5ML BOTTLE OU SCH (21:09)
[2017-10-19] MEDS ORDERED: PT OWN MED DRAWER 7, Y5N ONE (21:54)
[2017-10-20] MEDS ORDERED: DEXTROSE 5%-WATER - 50 ML IVPB ONE ×3 (00:24→17:10)
[2017-10-20] MEDS ORDERED: PIPERACILLIN/TAZOBACTAM 3.375 GM VIAL IVPB ONE ×3 (00:24→17:10)
[2017-10-20] MEDS: PIPERACILLIN/TAZOB 3.375 GM 3.375 GM in DEXTROSE 5%-WATER - 50 ML IVPB SCH ×3 (01:00→17:21)
[2017-10-20] MEDS: glipiZIDE 5 MG TABLET (FP) PO SCH (06:25)
[2017-10-20] MEDS: ASPIRIN 81 MG CHEWABLE TABLETS PO SCH (09:25)
[2017-10-20] MEDS: FUROSEMIDE 20 MG TABLET (FP) PO SCH (09:25)
[2017-10-20] MEDS: BRIMONIDINE TARTRATE 0.15% OPHTHALMIC 5 ML BOTTLE OD SCH ×2 (09:26→22:06)
--- NOTE | 2017-10-20 11:03 | PN ---
Progress Note, Physician History of Present Illness: patient stable dressing removed wound looks good swelling also markedly less as does leg looks better - Current Medication List Current Medications: Active Medications Aspirin (Asa -) 81 mg PO DAILY [facility] Last Admin: 10/20/17 09:25 Dose: 81 mg Brimonidine Tartrate (Alphagan 0.15% -) 1 drop OD BID [facility] Last Admin: 10/20/17 09:26 Dose: 1 drop Furosemide (Lasix -) 20 mg PO DAILY [facility] Last Admin: 10/20/17 09:25 Dose: 20 mg Glipizide (Glucotrol -) 2.5 mg PO DAILY@0700 [facility] Last Admin: 10/20/17 06:25 Dose: 2.5 mg Piperacillin Sod/Tazobactam (Sod 3.375 gm/ Dextrose) 50 mls @ 100 mls/hr IVPB Q8H-IV SLY; Protocol Last Admin: 10/20/17 09:25 Dose: 100 mls/hr Latanoprost (Xalatan 0.005% Eye Drops -) 1 drop OU HS [facility] Last Admin: 10/19/17 21:09 Dose: 1 drop - Objective Vital Signs: Vital Signs Temperature 98.8 F 10/20/17 05:38 Pulse Rate 63 10/20/17 05:38 Respiratory Rate 18 10/20/17 05:38 Blood Pressure 155/59 10/20/17 05:38 O2 Sat by Pulse Oximetry (%) 97 10/19/17 19:51 Constitutional: Yes: No Distress, Calm Cardiovascular: Yes: Regular Rate and Rhythm Respiratory: Yes: Regular, CTA Bilaterally Gastrointestinal: Yes: Normal Bowel Sounds, Soft Musculoskeletal: Yes: WNL Extremities: Yes: Other Wound/Incision: Yes: Dressing Removed, Other (wound healing nicely) Neurological: Yes: Alert, Oriented Psychiatric: Yes: Alert, Oriented Labs: CBC, BMP 10/19/17 06:00 10/19/17 06:00 INR, PTT INR 1.09 (0.82-1.09) 10/13/17 21:00 Assessment/Plan Problem List - Problems (1) Cellulitis of leg Code(s): L03.119 - CELLULITIS OF UNSPECIFIED PART OF LIMB Qualifiers: Laterality: left Qualified Code(s): L03.116 - Cellulitis of left lower limb (2) Diabetes Code(s): E11.9 - TYPE 2 DIABETES MELLITUS WITHOUT COMPLICATIONS 3) wound infection plan we will continue one more week of iv abx and if the wound looks good then switch to oral wound care rest as per the team patients leg improving
[2017-10-20] MEDS ORDERED: PT OWN MED DRAWER 7, Y5N ONE (17:10)
[2017-10-20] MEDS ORDERED: PICC LINE 8 ML FLUSH PROTOCOL IVPUSH PRN (19:22)
--- NOTE | 2017-10-20 19:23 | PN ---
Progress Note, Physician - Current Medication List Current Medications: Active Medications Aspirin (Asa -) 81 mg PO DAILY [facility] Last Admin: 10/20/17 09:25 Dose: 81 mg Brimonidine Tartrate (Alphagan 0.15% -) 1 drop OD BID [facility] Last Admin: 10/20/17 09:26 Dose: 1 drop Furosemide (Lasix -) 20 mg PO DAILY [facility] Last Admin: 10/20/17 09:25 Dose: 20 mg Glipizide (Glucotrol -) 2.5 mg PO DAILY@0700 [facility] Last Admin: 10/20/17 06:25 Dose: 2.5 mg Piperacillin Sod/Tazobactam (Sod 3.375 gm/ Dextrose) 50 mls @ 100 mls/hr IVPB Q8H-IV SLY; Protocol Last Admin: 10/20/17 17:21 Dose: 100 mls/hr Latanoprost (Xalatan 0.005% Eye Drops -) 1 drop OU HS [facility] Last Admin: 10/19/17 21:09 Dose: 1 drop - Objective Vital Signs: Vital Signs Temperature 97.8 F 10/20/17 18:00 Pulse Rate 73 10/20/17 18:00 Respiratory Rate 20 10/20/17 18:00 Blood Pressure 154/68 10/20/17 18:00 O2 Sat by Pulse Oximetry (%) 96 10/20/17 09:00 Constitutional: Yes: No Distress HENT: Yes: Atraumatic Neck: Yes: Supple Cardiovascular: Yes: Regular Rate and Rhythm Respiratory: Yes: CTA Bilaterally Gastrointestinal: Yes: Normal Bowel Sounds Extremities: Yes: Other (llex celulitis) Neurological: Yes: Alert, Oriented Labs: CBC, BMP 10/19/17 06:00 10/19/17 06:00 INR, PTT INR 1.09 (0.82-1.09) 10/13/17 21:00 Problem List - Problems (1) Cellulitis of leg Assessment/Plan: iv abx wound care dressing change pic line Code(s): L03.119 - CELLULITIS OF UNSPECIFIED PART OF LIMB Qualifiers: Laterality: left Qualified Code(s): L03.116 - Cellulitis of left lower limb (2) Diabetes Assessment/Plan: on po med bgms Code(s): E11.9 - TYPE 2 DIABETES MELLITUS WITHOUT COMPLICATIONS
[2017-10-20] MEDS: LATANOPROST 0.005% OPHTH SOLN 2.5ML BOTTLE OU SCH (22:06)
[2017-10-21] MEDS ORDERED: PIPERACILLIN/TAZOBACTAM 3.375 GM VIAL IVPB ONE ×4 (01:03→23:31)
[2017-10-21] MEDS ORDERED: DEXTROSE 5%-WATER - 50 ML IVPB ONE ×4 (01:04→23:32)
[2017-10-21] MEDS: PIPERACILLIN/TAZOB 3.375 GM 3.375 GM in DEXTROSE 5%-WATER - 50 ML IVPB SCH ×3 (01:05→17:40)
[2017-10-21] MEDS ORDERED: PT OWN MED DRAWER 7, Y5N ONE ×2 (01:32→23:17)
[2017-10-21] MEDS: glipiZIDE 5 MG TABLET (FP) PO SCH (06:18)
[2017-10-21] MEDS: FUROSEMIDE 20 MG TABLET (FP) PO SCH (10:40)
[2017-10-21] MEDS: ASPIRIN 81 MG CHEWABLE TABLETS PO SCH (10:40)
[2017-10-21] MEDS: BRIMONIDINE TARTRATE 0.15% OPHTHALMIC 5 ML BOTTLE OD SCH ×2 (10:41→22:23)
--- NOTE | 2017-10-21 14:21 | PN ---
Progress Note, Physician History of Present Illness: doing well no new issues - Current Medication List Current Medications: Active Medications Aspirin (Asa -) 81 mg PO DAILY [facility] Last Admin: 10/21/17 10:40 Dose: 81 mg Brimonidine Tartrate (Alphagan 0.15% -) 1 drop OD BID [facility] Last Admin: 10/21/17 10:41 Dose: 1 drop Furosemide (Lasix -) 20 mg PO DAILY [facility] Last Admin: 10/21/17 10:40 Dose: 20 mg Glipizide (Glucotrol -) 2.5 mg PO DAILY@0700 [facility] Last Admin: 10/21/17 06:18 Dose: 2.5 mg IV Flush (Picc Line Flush) 8 ml IVPUSH PRN PRN PRN Reason: Protocol Piperacillin Sod/Tazobactam (Sod 3.375 gm/ Dextrose) 50 mls @ 100 mls/hr IVPB Q8H-IV SLY; Protocol Last Admin: 10/21/17 10:40 Dose: 100 mls/hr Latanoprost (Xalatan 0.005% Eye Drops -) 1 drop OU HS [facility] Last Admin: 10/20/17 22:06 Dose: 1 drop - Objective Vital Signs: Vital Signs Temperature 98.3 F 10/21/17 06:10 Pulse Rate 59 L 10/21/17 06:10 Respiratory Rate 20 10/21/17 06:10 Blood Pressure 125/57 10/21/17 06:10 O2 Sat by Pulse Oximetry (%) 96 10/20/17 20:21 Constitutional: Yes: No Distress, Calm Cardiovascular: Yes: Regular Rate and Rhythm Respiratory: Yes: Regular, CTA Bilaterally Gastrointestinal: Yes: Normal Bowel Sounds, Soft Musculoskeletal: Yes: WNL Extremities: Yes: Other Integumentary: Yes: Other Wound/Incision: Yes: Dressing Dry and Intact Neurological: Yes: Alert, Oriented Labs: CBC, BMP 10/19/17 06:00 10/19/17 06:00 INR, PTT INR 1.09 (0.82-1.09) 10/13/17 21:00 Assessment/Plan Problem List - Problems (1) Cellulitis of leg Code(s): L03.119 - CELLULITIS OF UNSPECIFIED PART OF LIMB Qualifiers: Laterality: left Qualified Code(s): L03.116 - Cellulitis of left lower limb (2) Diabetes Code(s): E11.9 - TYPE 2 DIABETES MELLITUS WITHOUT COMPLICATIONS 3) wound infection plan we will continue one more week of iv abx and if the wound looks good then switch to oral wound care rest as per the team patients leg improving
--- NOTE | 2017-10-21 16:14 | PN ---
Progress Note, Physician History of Present Illness: doing well - Current Medication List Current Medications: Active Medications Aspirin (Asa -) 81 mg PO DAILY [facility] Last Admin: 10/21/17 10:40 Dose: 81 mg Brimonidine Tartrate (Alphagan 0.15% -) 1 drop OD BID [facility] Last Admin: 10/21/17 10:41 Dose: 1 drop Furosemide (Lasix -) 20 mg PO DAILY [facility] Last Admin: 10/21/17 10:40 Dose: 20 mg Glipizide (Glucotrol -) 2.5 mg PO DAILY@0700 [facility] Last Admin: 10/21/17 06:18 Dose: 2.5 mg IV Flush (Picc Line Flush) 8 ml IVPUSH PRN PRN PRN Reason: Protocol Piperacillin Sod/Tazobactam (Sod 3.375 gm/ Dextrose) 50 mls @ 100 mls/hr IVPB Q8H-IV SLY; Protocol Last Admin: 10/21/17 10:40 Dose: 100 mls/hr Latanoprost (Xalatan 0.005% Eye Drops -) 1 drop OU HS [facility] Last Admin: 10/20/17 22:06 Dose: 1 drop - Objective Vital Signs: Vital Signs Temperature 97.8 F 10/21/17 14:41 Pulse Rate 68 10/21/17 14:41 Respiratory Rate 18 10/21/17 14:41 Blood Pressure 151/71 10/21/17 14:41 O2 Sat by Pulse Oximetry (%) 96 10/20/17 20:21 Constitutional: Yes: No Distress HENT: Yes: Atraumatic Neck: Yes: Supple Cardiovascular: Yes: Regular Rate and Rhythm Respiratory: Yes: CTA Bilaterally Gastrointestinal: Yes: Normal Bowel Sounds Extremities: Yes: Other (cellulitis getting better) Edema: Yes Peripheral Pulses WNL: Yes Neurological: Yes: Alert, Oriented Labs: CBC, BMP 10/19/17 06:00 10/19/17 06:00 INR, PTT INR 1.09 (0.82-1.09) 10/13/17 21:00 Problem List - Problems (1) Cellulitis of leg Assessment/Plan: iv abx wound care dressing change pic line Code(s): L03.119 - CELLULITIS OF UNSPECIFIED PART OF LIMB Qualifiers: Laterality: left Qualified Code(s): L03.116 - Cellulitis of left lower limb (2) Diabetes Assessment/Plan: on po med bgms Code(s): E11.9 - TYPE 2 DIABETES MELLITUS WITHOUT COMPLICATIONS
[2017-10-21] MEDS: LATANOPROST 0.005% OPHTH SOLN 2.5ML BOTTLE OU SCH (22:22)
[2017-10-22] MEDS: PIPERACILLIN/TAZOB 3.375 GM 3.375 GM in DEXTROSE 5%-WATER - 50 ML IVPB SCH ×2 (01:03→10:41)
[2017-10-22] MEDS: glipiZIDE 5 MG TABLET (FP) PO SCH (06:39)
[2017-10-22] MEDS ORDERED: DEXTROSE 5%-WATER - 50 ML IVPB ONE (10:06)
[2017-10-22] MEDS ORDERED: PIPERACILLIN/TAZOBACTAM 3.375 GM VIAL IVPB ONE (10:06)
[2017-10-22] MEDS: ASPIRIN 81 MG CHEWABLE TABLETS PO SCH (10:41)
[2017-10-22] MEDS: FUROSEMIDE 20 MG TABLET (FP) PO SCH (10:41)
[2017-10-22] MEDS: BRIMONIDINE TARTRATE 0.15% OPHTHALMIC 5 ML BOTTLE OD SCH (10:42)
[2017-10-22 14:44] VITALS: BP 150/59; PULSE 74; TEMP 98.4
--- NOTE | 2017-10-22 15:37 | DS ---
Physical Examination Vital Signs: Vital Signs Temperature 98.4 F 10/22/17 14:42 Pulse Rate 74 10/22/17 14:42 Respiratory Rate 18 10/22/17 14:42 Blood Pressure 150/59 10/22/17 14:42 O2 Sat by Pulse Oximetry (%) 96 10/21/17 20:57 Constitutional: Yes: No Distress HENT: Yes: Atraumatic Neck: Yes: Supple Cardiovascular: Yes: Regular Rate and Rhythm Respiratory: Yes: CTA Bilaterally Gastrointestinal: Yes: Normal Bowel Sounds Extremities: Yes: WNL Neurological: Yes: Alert, Oriented Labs: CBC, BMP 10/19/17 06:00 10/19/17 06:00 Discharge Summary Reason For Visit: CELLULITIS OF LOWER EXTREMITY Current Active Problems Cellulitis of leg (Acute) Diabetes (Acute) Condition: Stable - Instructions Referrals: Tyson Elizabeth MD [Primary Care Provider] - Belkys Francis MD [Staff Physician] - [facility] - Home Medications Comprehensive Discharge Medication List: Ambulatory Orders ASA - 81 mg PO DAILY 08/01/17 Lasix 20 mg PO DAILY 08/01/17 Glipizide 2.5 mg PO DAILY 08/08/17 Alphagan 0.15% - IO BID MDD right only 10/14/17 Bimatoprost [[place]igan] OU DAILY 10/14/17 Flunisolide DAILY 10/14/17 dc snf iv abx per id wound care
== END 2017-10-22 15:48 | DRG 603 ==
LOC: JER 18:14 → JERBED 19:48 → J7W 10-14 00:52
PROVIDERS: ADMIT Internal Medicine; ATTEND Internal Medicine
DX: L03.116 Cellulitis of left lower limb (principal); J32.9 Chronic sinusitis, unspecified; E11.9 Type 2 diabetes mellitus without complications; H40.9 Unspecified glaucoma; N28.9 Disorder of kidney and ureter, unspecified; I10 Essential (primary) hypertension; Z96.653 Presence of artificial knee joint, bilateral
CPT/HCPCS: 29581-LT; 36415; 36569; 71046-TC-FY; 77001-TC-FY; 80053; 82962; 85025; 85610; 85730; 87040; 97116-GP; 97161-GP; 99282-25; A4649; A6197; C1751; G0463-25